=== PATIENT | male | born 1985 | race African-American/Black ===

== ENCOUNTER 2016-10-27 21:47 | Emergency (ER) | payer OTHER | END 2016-10-28 01:41 | disposition home or self-care (01) | LOC: CED 21:47 → CFTX 23:50 | DX: S39.012A Strain of muscle, fascia and tendon of lower back, initial encounter (principal); Z91.013 Allergy to seafood; X50.9XXA Other and unspecified overexertion or strenuous movements or postures, initial encounter | CPT/HCPCS: 96372; 99283; J1885 ==